=== PATIENT | male | born 1960 | race Caucasian/White ===

== ENCOUNTER 2018-07-21 16:41 | Emergency (ER) | payer BC, OTHER ==
[2018-07-21 17:24] VITALS: BP 167/78
--- NOTE | 2018-07-21 17:57 | EDM.PDOC ---
ED HPI GENERAL MEDICAL PROBLEM - General Chief Complaint: Neuro Symptoms/Deficits Stated Complaint: LEFT SIDE OF FACE NOT DROPPING [id number] Time Seen by Provider: 07/21/18 17:10 Source of Information: Reports: Patient History Limitations: Reports: No Limitations - History of Present Illness INITIAL COMMENTS - FREE TEXT/NARRATIVE: Patient comes to the emergency department today with complaints of left-sided facial numbness and drooping. He awoke this morning without any complaints. Throughout the day he has developed some numbness to left side of his face he is unable to close his eye on the left side his tongue on the left side feels numb and doesn't work as well. And his is concerned of a facial droop as well. He has no headache. No visual disturbances. No paresthesias of his upper or lower extremities. No change in the functionality of his upper or lower extremities. No weakness dizziness lightheadedness. No chest pain palpitations no syncope. He is concerned about palsy. Treatments GOLD NIB GRINDER: Reports: Other (see below) Other Treatments GOLD NIB GRINDER: none - Related Data Allergies Allergy/AdvReac Type Severity Reaction Status Date / Time dust mites Allergy Cannot Uncoded 07/21/18 17:24 Remember Home Meds: Home Meds Aspirin [Adult Low Dose Aspirin EC] 81 mg PO DAILY 09/17/13 [History] atorvaSTATin Calcium [Atorvastatin Calcium] 1 tab PO DAILY 01/28/16 [History] Chlorthalidone 0.5 tab PO DAILY 07/21/18 [History] Losartan [Cozaar] 100 mg PO DAILY 07/21/18 [History] Potassium Chloride [Klor-Con M20] 20 meq PO BID 07/21/18 [History] Past Medical History HEENT History: Reports: Hard of Hearing, Impaired Vision Other HEENT History: wears corrective lenses. dental extractions Cardiovascular History: Reports: High Cholesterol, Hypertension, Other (See Below) Other Cardiovascular History: hypokalemia due to medications Gastrointestinal History: Reports: GERD - Past Surgical History Male Surgical History: Reports: Vasectomy Social & Family History - Family History Family Medical History: Noncontributory - Tobacco Use Smoking Status *Q: Never Smoker - Caffeine Use Caffeine Use: Reports: Soda - Recreational Drug Use Recreational Drug Use: No ED ROS GENERAL - Review of Systems Review Of Systems: ROS reveals no pertinent complaints other than HPI. ED EXAM, NEURO - Physical Exam Exam: See Below Exam Limited By: No Limitations General Appearance: Alert, WD/WN Eye Exam: Right Eye: Normal Inspection (Right sided ptosis), Bilateral Eye: EOMI , PERRL Ears: Normal External Exam, Normal Canal, Normal TMs Nose: Normal Inspection Throat/Mouth: Normal Inspection, Normal Lips Head Exam: Atraumatic, Normocephalic Neck: Normal Inspection, Supple, Non-Tender Respiratory/Chest: No Respiratory Distress, Lungs Clear, Normal Breath Sounds, No Accessory Muscle Use Cardiovascular: Normal Peripheral Pulses, Regular Rate, Rhythm Neurological: Alert, Normal Mood/Affect, Normal Dorsiflexion, Normal Plantar Flexion, Normal Gait, Normal Reflexes, Oriented x 3. No: CN II-XII Intact (He has loss of motor function of the left forehead, and a mild left facial droop, speech is a little thick but easily understandable. He is unable to close his left eye. Vision is unchange without diplopia. ), Ataxia DTR: 2+: Bicep (R), Bicep (L), Tricep (R), Tricep (L), Patella (R), Patella (L) , Achilles (R), Achilles (L) Back Exam: Normal Inspection Extremities: Normal Inspection, Normal Range of Motion, Normal Capillary Refill Psychiatric: Normal Affect Skin Exam: Warm, Dry, Intact, Normal Color, No Rash Course - Vital Signs Last Recorded V/S: Last Vital Signs Temp 37.1 C 07/21/18 17:22 Pulse 71 07/21/18 17:22 Resp 16 07/21/18 17:22 BP 167/78 H 07/21/18 17:22 Pulse Ox 99 07/21/18 17:22 - Re-Assessments/Exams Free Text/Narrative Re-Assessment/Exam: 07/21/18 I explained to the patient that this is clearly the presentation of acute Langley' s palsy. He has no systemic complaints and other than cranial nerve involvement there is no other neurological changes. We'll treat him with valacyclovir and prednisone. His control this plan and his questions are answered. I did talk at length the importance of keeping his eye hydrated during the day as well as at night and protect from damage due to his ptosis. Physical therapy tomorrow. He is comfortable with this plan and his questions answered. Departure - Departure Time of Disposition: 17:50 Disposition: Home, Self-Care 01 Clinical Impression: Langley's palsy - Discharge Information Instructions: Langley Palsy, Adult Referrals: Giulia Benton PA [Primary Care Provider] - Forms: ED Department Discharge Additional Instructions: Physical therapy follow up tomorrow. Valacyclovir, 1 tablet three times a day for the next 7 days. RX given to the patient. Prednisone, 80mg by mouth once a day for the next 7 days. RX given to the patient. Apply OTC Artificial tears every 4 hours while awake. Artificial tears ointment in the left eye at bedtime until symptoms resolve. Tape the eye shut while you are sleeping. Return to the ED if new or worsening symptoms. Follow up with primary care in the next week for recheck. - Assessment/Plan Assessment:: Left Facial [place] Palsy/ Plan: Maalox or Mylanta for acute symptoms heartburn Carafate, 1 tablet 4 times a day before meals and bedtime. RX given to the patient. Omeprazole 1 tablet twice daily for 2 weeks then daily for 2 more weeks. RX given to the patient. See your PCP this week even if walk in clinic for recheck and consider EGD and testing for H Pylori. Return to the ED if new or worsening symptoms. Follow up as above.
== END 2018-07-21 18:07 | disposition home or self-care (01) ==
LOC: DL.ED 16:41
DX: G51.0 Bell's palsy (principal); E78.00 Pure hypercholesterolemia, unspecified; I10 Essential (primary) hypertension; Z79.82 Long term (current) use of aspirin; Z79.899 Other long term (current) drug therapy
CPT/HCPCS: 99283

== ENCOUNTER 2020-12-05 16:36 | Emergency (ER) | payer BC, OTHER ==
[2020-12-05 17:02] VITALS: BP 173/85; PULSE 94
[2020-12-05 17:40] LABS: CORONAVIRUS COVID-19 NAA NEGATIVE (NEGATIVE)
--- NOTE | 2020-12-05 17:41 | EDM.PDOC ---
ED HPI GENERAL MEDICAL PROBLEM - General Chief Complaint: Respiratory Problem Stated Complaint: POSSIBLE COVID Time Seen by Provider: 12/05/20 17:32 Source of Information: Reports: Patient, RN, RN Notes Reviewed History Limitations: Reports: No Limitations - History of Present Illness INITIAL COMMENTS - FREE TEXT/NARRATIVE: Popeye is a 60 y/o male who presents to the ED via personal vehicle with complaints of decreased taste and smell. The patient reports he was diagnosed with a sinus infection three days ago, for which he is currently being treated with amoxicillin. He states he has experienced sinus pressure, cough, and sore throat since that time, but notes a decrease in his taste and smell this afternoon at lunch. He denies fever, shaking chills, muscles aches, chest pain, palpitations, shortness of breath, abdominal pain, nausea, vomiting, or diarrhea. The patient states he is concerned about COVID exposure at a nondenominational event over the weekend. The patient states he has been vaccinated for COVID since . - Related Data Allergies Allergy/AdvReac Type Severity Reaction Status Date / Time dust mites Allergy Cannot Uncoded 07/21/18 17:24 Remember Home Meds: Home Meds atorvaSTATin Calcium [Atorvastatin Calcium] 1 tab PO DAILY 01/28/16 [History] Chlorthalidone 0.5 tab PO DAILY 07/21/18 [History] Losartan [Cozaar] 100 mg PO DAILY 07/21/18 [History] Past Medical History HEENT History: Reports: Hard of Hearing, Impaired Vision Other HEENT History: wears corrective lenses. dental extractions Cardiovascular History: Reports: High Cholesterol, Hypertension, Other (See Below) Other Cardiovascular History: hypokalemia due to medications Gastrointestinal History: Reports: GERD - Past Surgical History Male Surgical History: Reports: Vasectomy Social & Family History - Family History Family Medical History: No Pertinent Family History - Tobacco Use Tobacco Use Status *Q: Never Tobacco User Second Hand Smoke Exposure: No - Caffeine Use Caffeine Use: Reports: Soda - Recreational Drug Use Recreational Drug Use: No ED ROS GENERAL - Review of Systems Review Of Systems: Comprehensive ROS is negative, except as noted in HPI. ED EXAM, GENERAL - Physical Exam Exam: See Below Exam Limited By: No Limitations General Appearance: Alert, No Apparent Distress Eye Exam: Bilateral Eye: EOMI, Normal Inspection, PERRL (3mm) Ears: Normal External Exam, Hearing Grossly Normal Ear Exam: Bilateral Ear: Auricle Normal, Canal Normal, TM normal Nose: Normal Inspection, Normal Mucosa, No Blood Throat/Mouth: Normal Inspection, Normal Oropharynx, Normal Voice, No Airway Compromise Head: Atraumatic, Normocephalic Neck: Normal Inspection, Supple, Non-Tender, Full Range of Motion. No: Lymphadenopathy (L), Lymphadenopathy (R) Respiratory/Chest: No Respiratory Distress, Lungs Clear, Normal Breath Sounds, No Accessory Muscle Use, Chest Non-Tender Cardiovascular: Normal Peripheral Pulses, Regular Rate, Rhythm, No Edema, No Gallop, No JVD, No Murmur, No Rub Peripheral Pulses: 2+: Radial (L), Radial (R) GI/Abdominal: Normal Bowel Sounds, Soft, Non-Tender, No Distention, No Abnormal Bruit, No Mass, Pelvis Stable (Male) Exam: Deferred Rectal (Males) Exam: Deferred Back Exam: Normal Inspection, Full Range of Motion. No: CVA Tenderness (L), CVA Tenderness (R) Extremities: Normal Inspection, Normal Range of Motion, Non-Tender, Normal Capillary Refill, No Pedal Edema Neurological: Alert, Oriented, CN II-XII Intact, Normal Cognition, Normal Gait, No Motor/Sensory Deficits Psychiatric: Normal Affect, Normal Mood Skin Exam: Warm, Dry, Intact, Normal Color, No Rash. No: Cyanosis, Jaundice, Mottled, Pallor Course - Vital Signs Last Recorded V/S: Last Vital Signs Temp 99.9 F 12/05/20 16:54 Pulse 94 12/05/20 16:54 Resp 18 12/05/20 16:54 BP 173/85 H 12/05/20 16:54 Pulse Ox 93 L 12/05/20 16:54 - Orders/Labs/Meds Labs: Laboratory Tests 12/05/20 Range/Units 16:46 Influenza Type A RNA Negative (NEGATIVE) Influenza Type B RNA Negative (NEGATIVE) SARS-CoV-2 RNA (NEERAJ) Negative (NEGATIVE) - Re-Assessments/Exams Free Text/Narrative Re-Assessment/Exam: 12/05/20 COVID swab sent. COVID and influenza negative. Findings of examination and lab work reviewed with patient. Discussed supportive cares for previous sinus infection. Red flag signs and symptoms which would warrant reevaluation reviewed. Patient verbalized understanding and agreement with the plan of care. Departure - Departure Time of Disposition: 17:57 Disposition: Home, Self-Care 01 Condition: Good Clinical Impression: Cough in adult, Decreased taste and smell - Discharge Information *PRESCRIPTION DRUG MONITORING PROGRAM REVIEWED*: Not Applicable *COPY OF PRESCRIPTION DRUG MONITORING REPORT IN PATIENT DWAY[place]: Not Applicable Instructions: Cough, Adult, [id number] Forms: ED Department Discharge Additional Instructions: 1.) Continue with current antibiotic regimen for acute sinusitis. 2.) Continue with supportive cares for acute sinusitis. 3.) Follow up with primary care provider regarding today's visit, should symptoms persist or should you develop fever, shaking chills, chest pain, or shortness of breath. Sepsis Event Note (ED) - Evaluation Sepsis Screening Result: No Definite Risk
== END 2020-12-05 18:08 | disposition home or self-care (01) ==
LOC: DL.ED 16:36
DX: R05 Cough (principal); R43.9 Unspecified disturbances of smell and taste; E78.00 Pure hypercholesterolemia, unspecified; I10 Essential (primary) hypertension; Z91.09 Other allergy status, other than to drugs and biological substances; Z20.822 Contact with and (suspected) exposure to COVID-19
CPT/HCPCS: 0240U; 99283